=== PATIENT | female | born 1960 | race Caucasian/White ===

== ENCOUNTER → 2016-11-21 | Outpatient (CLI) | payer OTHER | LOC: FIMAGING 10:52 | PROVIDERS: ATTEND Obstetrics & Gynecology | DX: Z12.31 Encounter for screening mammogram for malignant neoplasm of breast (principal); Z80.3 Family history of malignant neoplasm of breast | CPT/HCPCS: G0202 ==

== ENCOUNTER → 2017-07-27 | Outpatient (CLI) | payer OTHER | LOC: FIMAGING 13:04 | PROVIDERS: ATTEND Obstetrics & Gynecology | DX: Z13.820 Encounter for screening for osteoporosis (principal); Z78.0 Asymptomatic menopausal state ==

== ENCOUNTER → 2017-11-22 | Outpatient (CLI) | payer OTHER | LOC: FIMAGING 12:14 | PROVIDERS: ATTEND Obstetrics & Gynecology | DX: Z12.31 Encounter for screening mammogram for malignant neoplasm of breast (principal) ==